=== PATIENT | female | born 1960 ===

== ENCOUNTER 2017-02-01 18:35 | Emergency (ER) | payer MEDICARE, MEDICAID ==
[2017-02-01 18:42] VITALS: BMI 24.1
[2017-02-01 19:12] VITALS: TEMP 98.7
[2017-02-01 19:12] LABS: ADD MANUAL DIFF? NO
[2017-02-01 19:14] LABS: BASO # 0.01 K/mm3 (0.0-2.0); BASO % 0.2 % (0.0-3.0); EOS # 0.1 (0.0-0.7); EOS % 1.6 % (1.5-5.0); GRAN # 3.89 (1.4-6.5); GRAN % 63.7 % (50.0-68.0); HEMATOCRIT 39.5 % (42.0-52.0); LYMPH # 1.7 (1.2-3.4); LYMPH % 28.3 % (22.0-35.0); MEAN CELL VOLUME 90.8 fL (80.0-105.0); MEAN CORPUSCULAR HEMOGLOBIN 30.1 pg (25.0-35.0); MEAN CORPUSCULAR HGB CONC 33.2 g/dl (31.0-37.0); MEAN PLATELET VOLUME 10.9 fl (7.0-11.0); MONO # 0.4 (0.1-0.6); MONO % 6.2 % (1.0-6.0); PLATELET COUNT 253 10^3/uL (120.0-450.0); RED CELL DISTRIBUTION WIDTH 12.8 % (11.5-14.5); WHITE BLOOD COUNT 6.1 10^3/ul (4.5-11.0)
[2017-02-01] MEDS ORDERED: levETIRAcetam 1,000 MG in Sodium Chloride 0.9% 100 ML IV ONE (19:24)
[2017-02-01] MEDS ORDERED: Oxycodone/Acetaminophen 5/325 mg Tab PO STA (19:24)
[2017-02-01 19:28] LABS: ALB/GLOB RATIO 1.2 (1.1-1.8); ALKALINE PHOSPHATASE 67 U/L (38-133); ALT/SGPT 16 U/L (7-56); AST/SGOT 36 U/L (15-59); BILIRUBIN,TOTAL 1.1 mg/dL (0.2-1.3); BLOOD UREA NITROGEN 10 mg/dL (7-21); CALCIUM 9.8 mg/dL (8.4-10.5); CARBON DIOXIDE 22 mmol/L (21-33); CHLORIDE 100 mmol/L (98-107); GFR AFRICAN-AMERICAN > 60; GLUCOSE,RANDOM 89 mg/dL (70-110); SODIUM 136 mmol/L (132-148); TOTAL PROTEIN 8.6 g/dL (5.8-8.3)
[2017-02-01] MEDS ORDERED: Morphine 4 mg/ml ISec IVP STA (19:56)
[2017-02-01 20:20] LABS: URINE APPEARANCE CLEAR (CLEAR); URINE BILIRUBIN NEGATIVE (NEGATIVE); URINE BLOOD SMALL (NEGATIVE); URINE COLOR YELLOW (YELLOW); URINE GLUCOSE (UA) NEGATIVE (NEGATIVE); URINE KETONE NEGATIVE (NEGATIVE); URINE LEUKOCYTE ESTERASE SMALL Leu/uL (NEGATIVE); URINE PROTEIN NEGATIVE mg/dL (<30 mg/dL); URINE UROBILINOGEN 0.2 E.U./dL (<1 E.U./dL)
[2017-02-01 20:26] LABS: URINE BACTERIA MOD (NEG); URINE EPITHELIAL CELLS 0 - 2 /hpf (0-5)
--- NOTE | 2017-02-01 20:41 | ED PDOC ---
Arrival/HPI - General Chief Complaint: Seizure Time Seen by Provider: 02/01/17 18:40 Historian: Patient - History of Present Illness Narrative History of Present Illness (Text): 02/01/17 21:12 56 year old female presents to the emergency department with seizure like activity prior to arrival. As per ALS, patient was having seizure like activity upon their arrival. Upon arrival to ED, patient had seizure like activity and was given Ativan IV push with resolution. Patient had no postictal state. Patient is a poor historian. She states she takes Kepra for seizure and missed yesterday's dose. Patient states she has two types of seizures, one of which is brought on by "increased stress." Patient is also complaining of chronic back pain. All the patient's doctors are at [facility] Time/Duration: Prior to Arrival Symptom Onset: Sudden Symptom Course: Improving Modifying Factors (Text): None Associated Symptoms (Text): None Past Medical History - Provider Review Nursing Documentation Reviewed: Yes - Cardiac Hx Hypertension: Yes - Neurological HX Cerebrovascular Accident: Yes (denies deficits) Hx Seizures: Yes - Endocrine/Metabolic Hx Diabetes Mellitus Type 2: Yes - Psychiatric Hx Substance Use: No - Surgical History Hx Section: Yes Family/Social History - Physician Review Nursing Documentation Reviewed: Yes Family/Social History: Unknown Family HX Smoking Status: Light Smoker < 10 Cigarettes Daily Hx Alcohol Use: No Hx Substance Use: No Allergies/Home Meds Allergies/Adverse Reactions: Allergies Penicillins Allergy (Verified 02/01/17 18:44) ANAPHYLAXIS Home Medications: Home Meds Medication Instructions Recorded Confirmed levETIRAcetam [Keppra] 1,000 mg PO BID 02/01/17 02/01/17 Review of Systems - Physician Review All systems were reviewed & negative as marked: Yes - Review of Systems Respiratory: absent: SOB Musculoskeletal: Back Pain (chronic) Neurological: Seizure Physical Exam Vital Signs Reviewed: Yes Vital Signs Temp Pulse Resp BP Pulse Ox 02/01/17 22:27 66 16 98 02/01/17 21:27 57 L 13 113/74 97 02/01/17 20:15 60 20 113/75 95 02/01/17 18:36 98.7 F 79 17 146/82 98 Temperature: Afebrile Blood Pressure: Normal Pulse: Regular Respiratory Rate: Normal Appearance: Positive for: Well-Appearing, Non-Toxic, Comfortable Pain Distress: None Mental Status: Positive for: other (Awake, alert) Finger Stick Blood Glucose: 88 - Systems Exam Head: Present: Atraumatic, Normocephalic Pupils: Present: PERRL Extroacular Muscles: Present: EOMI Conjunctiva: Present: Normal Mouth: Present: Moist Mucous Membranes, Other (No tongue biting) Neck: Present: Normal Range of Motion Respiratory/Chest: Present: Clear to Auscultation, Good Air Exchange. No: Respiratory Distress, Accessory Muscle Use Cardiovascular: Present: Regular Rate and Rhythm, Normal S1, S2. No: Murmurs Abdomen: Present: Normal Bowel Sounds. No: Tenderness, Distention, Peritoneal Signs Genitourinary/Pelvic Exam: Present: Other (No incontinence) Back: Present: Normal Inspection Upper Extremity: Present: Normal Inspection. No: Cyanosis, Edema Lower Extremity: Present: Normal Inspection. No: Edema Neurological: Present: GCS=15, CN II-XII Intact, Speech Normal Skin: Present: Warm, Dry, Normal Color. No: Rashes Psychiatric: Present: Alert, Oriented x 3, Normal Insight, Normal Concentration Medical Decision Making ED Course and Treatment: Impression: 56 year old female presents to the emergency department with seizure like activity prior to arrival. Differential Diagnosis included but are not limited to: Seizure Plan: -- EKG -- Ativan -- Labs -- Reassess and disposition Progress Notes: EKG shows NSR at [address] segment elevations, normal axis, normal intervals, interpreted by me. - Lab Interpretations Lab Results: 02/01/17 18:50 02/01/17 18:50 Lab Results 02/01/17 19:19: Urine Color Yellow, Urine Appearance Clear, Urine pH 6.0, Ur Specific [place] 1.025, Urine Protein Negative, Urine Glucose (UA) Negative, Urine Ketones Negative, Urine Blood Small H, Urine Nitrate Negative, Urine Bilirubin Negative, Urine Urobilinogen 0.2, Ur Leukocyte Esterase Small H, Urine RBC 2 - 5, Urine WBC 5 - 10, Ur Epithelial Cells 0 - 2, Urine Bacteria Mod , Urine HCG, Qual Negative, Urine Opiates Screen Positive H, Urine Methadone Screen Negative, Ur Barbiturates Screen Negative, Ur Phencyclidine Scrn Negative , Ur Amphetamines Screen Negative, U Benzodiazepines Scrn Positive H, U Oth Cocaine Metabols Negative, U Cannabinoids Screen Negative 02/01/17 18:50: WBC 6.1, RBC 4.35, Hgb 13.1 L, Hct 39.5 L, MCV 90.8, MCH 30.1, MCHC 33.2, RDW 12.8, Plt Count 253, MPV 10.9, Gran % 63.7, Lymph % (Auto) 28.3, [place] % (Auto) 6.2 H, Eos % (Auto) 1.6, Baso % (Auto) 0.2, Gran # 3.89, Lymph # 1.7, [place] # 0.4, Eos # 0.1, Baso # 0.01, Sodium 136, Potassium 4.0, Chloride 100 , Carbon Dioxide 22, Anion Gap 18, BUN 10, Creatinine 0.7, Est GFR ( Amer ) > 60, Est GFR (Non-Af Amer) > 60, Random Glucose 89, Calcium 9.8, Total Bilirubin 1.1, AST 36, ALT 16, Alkaline Phosphatase 67, Total Protein 8.6 H, Albumin 4.6, Globulin 4.0, Albumin/Globulin Ratio 1.2 - EKG Interpretation Interpreted by ED Physician: Yes Type: 12 lead EKG - Medication Orders Current Medication Orders: Discontinued Medications Hydromorphone HCl (Dilaudid) 1 mg IVP STAT STA Stop: 02/01/17 21:09 Last Admin: 02/01/17 21:25 Dose: 1 MG IVP Administration Document 02/01/17 21:25 [email or web address] (Rec: 02/01/17 21:25 [email or web address] [id number]) Charges for Administration # of IVP Administrations 1 Levetiracetam 1,000 mg/ Sodium (Chloride) 110 mls @ 440 mls/hr IV ONCE ONE Stop: 02/01/17 19:38 Last Admin: 02/01/17 19:54 Dose: 440 MLS/HR eMAR Start Stop Document 02/01/17 19:54 [email or web address] (Rec: 02/01/17 19:54 [email or web address] [id number]) Intravenous Solution Start Date 02/01/17 Start Time 19:54 End Date 02/01/17 Lorazepam (Ativan) 4 mg IVP STAT STA PRN Reason: Protocol Stop: 02/01/17 19:03 Last Admin: 02/01/17 19:07 Dose: 4 MG Behavioural Document 02/01/17 19:07 [email or web address] (Rec: 02/01/17 19:07 [email or web address] [id number]) Maintenance Maintenance Dose Yes Behavior Behavior for Medication: Anxiety IVP Administration Document 02/01/17 19:07 [email or web address] (Rec: 02/01/17 19:07 [email or web address] [id number]) Charges for Administration # of IVP Administrations 1 Morphine Sulfate (Morphine) 4 mg IVP STAT STA Stop: 02/01/17 19:57 Last Admin: 02/01/17 20:10 Dose: 4 MG MAR Pain Assessment Document 02/01/17 20:10 [email or web address] (Rec: 02/01/17 20:11 [facility] [id number]) Pain Reassessment Is this a pain reassessment? No Sleep Is patient sleeping during reassessment? No Presence of Pain Presence of Pain Yes Pain Scale Used Pain Scale Used Numeric Location Pain Location Body Site Back Description Description Constant Intensity of Pain at present 8 Pain Behavior Moaning Guarding Withdrawal from Touch Facial Grimacing Aggravating Factors Changing Position Alleviating Factors/Management Medication Techniques Alleviating Factors Medication IVP Administration Document 02/01/17 20:10 [email or web address] (Rec: 02/01/17 20:11 [email or web address] [id number]) Charges for Administration # of IVP Administrations 1 Oxycodone/Acetaminophen (Percocet 5/325 Mg Tab) 2 tab PO STAT STA Stop: 02/01/17 19:25 Last Admin: 02/01/17 19:41 Dose: - Scribe Statement The provider has reviewed the documentation as recorded by the Cora Sharpe Provider Scribe Attestation: All medical record entries made by the Cora were at my direction and personally dictated by me. I have reviewed the chart and agree that the record accurately reflects my personal performance of the history, physical exam, medical decision making, and the department course for this patient. I have also personally directed, reviewed, and agree with the discharge instructions and disposition. Disposition/Present on Arrival - Present on Arrival Any Indicators Present on Arrival: No History of DVT/PE: No History of Uncontrolled Diabetes: No Urinary Catheter: No History of Decub. Ulcer: No History Surgical Site Infection Following: None - Disposition Have Diagnosis and Disposition been Completed?: Yes Diagnosis: Seizure disorder, Chronic back pain Disposition: HOME/ ROUTINE Disposition Time: 21:15 Condition: GOOD Discharge Instructions (ExitCare): Epilepsy (ED), Chronic Back Pain (ED) Additional Instructions: Thank you for letting us take care of you today. Your provider was Dr. Ennis. You were treated for seizure disorder and chronic back pain. The emergency medical care you received today was directed at your acute symptoms. If you were prescribed any medication, please fill it and take as directed. It may take several days for your symptoms to resolve. Return to the Emergency Department if your symptoms worsen, do not improve, or if you have any other problems. Please contact your doctor or call one of the physicians/clinics you have been referred to that are listed on the Patient Visit Information form that is included in your discharge packet. Bring any paperwork you were given at discharge with you along with any medications you are taking to your follow up visit. Our treatment cannot replace ongoing medical care by a primary care provider (PCP) outside of the emergency department. Thank you for allowing the [facility] team to be part of your care today. Take your keppra twice a day as prescribed. Do NOT take it tonight. You received your dose here in the ED. Follow up with your neurologist tomorrow morning for re-evaluation. Referrals: [facility], [Non-Staff] - Follow up with primary
[2017-02-01] MEDS ORDERED: HYDROmorphone 1 mg/ml ISec IVP STA (21:08)
[2017-02-01 21:27] VITALS: BP 113/74
[2017-02-01 22:28] VITALS: PULSE 66; RESP 16; O2SAT 98
--- NOTE | 2017-02-02 09:57 | CARD ---
APPROVED REPORT EKG Measurement Heart [id number] <Conclusion> Normal sinus rhythm PRWP V 1 - 4
== END 2017-02-01 22:28 | disposition home or self-care (01) ==
LOC: EDSEX → ED 18:35
DX: G40.909 Epilepsy, unspecified, not intractable, without status epilepticus (principal); M54.9 Dorsalgia, unspecified; G89.29 Other chronic pain; I10 Essential (primary) hypertension
CPT/HCPCS: 80053; 81001; 84703; 85025; 87086; 93005; 96374; 96375; 99285; G0480; J1170; J1953; J2060; J2270

== ENCOUNTER 2017-05-18 08:53 | Emergency (ER) | payer MEDICARE, MEDICAID ==
[2017-05-18 09:03] VITALS: TEMP 98.8; BMI 22.1
--- NOTE | 2017-05-18 09:38 | ED PDOC ---
Arrival/HPI - General Chief Complaint: Abdominal Pain Time Seen by Provider: 05/18/17 09:31 - History of Present Illness Narrative History of Present Illness (Text): 05/18/17 09:33 56 y/o female, pmh including htn/seizure, penicillin allergy, c/o abdominal pain /nausea/vomiting/diarrhea x 2 days. Pt. stated that she had chicken sandwich with her friend, 6 hours later developed nausea/vomiting and diarrhea, seen at the [facility] yesterday which she stated that she had CT Head which show no acute findings, no recent traveling with no antibiotics for the past 6 weeks, admits tired, epigastric pain with cramp, no fever or chills, no numbness or tingling, no other medical or psychological complaints. Past Medical History - Provider Review Nursing Documentation Reviewed: Yes - Infectious Disease Hx of Infectious Diseases: None - Cardiac Hx Hypertension: Yes - Pulmonary Hx Respiratory Disorders: No - Neurological HX Cerebrovascular Accident: Yes (denies deficits) Hx Seizures: Yes - HEENT Hx HEENT Disorder: No - Renal Hx Renal Disorder: No - Endocrine/Metabolic Hx Diabetes Mellitus Type 2: Yes - Musculoskeletal/Rheumatological Hx Musculoskeletal Disorders: Yes Hx Back Pain: Yes - Gastrointestinal Hx Gastrointestinal Disorders: No - Genitourinary/Gynecological Hx Genitourinary Disorders: No - Psychiatric Hx Psychophysiologic Disorder: No Hx Substance Use: No - Surgical History Hx Section: Yes - Anesthesia Hx Anesthesia: Yes Hx Anesthesia Reactions: No Family/Social History - Physician Review Nursing Documentation Reviewed: Yes Family/Social History: Unknown Family HX Smoking Status: Former Smoker Hx Alcohol Use: No Hx Substance Use: No Allergies/Home Meds Allergies/Adverse Reactions: Allergies Penicillins Allergy (Intermediate, Verified 05/18/17 09:03) ANAPHYLAXIS Home Medications: Home Meds Medication Instructions Recorded Confirmed levETIRAcetam [Keppra] 1,000 mg PO BID 02/01/17 05/18/17 oxyCODONE [oxyCODONE Immediate 2 tab PO BID 05/18/17 05/18/17 Release Tab] Review of Systems - Review of Systems Constitutional: Fatigue. absent: Fevers Eyes: absent: Vision Changes ENT: absent: Hearing Changes Respiratory: absent: SOB, Cough, Sputum Cardiovascular: absent: Chest Pain Gastrointestinal: Abdominal Pain, Diarrhea, Nausea, Vomiting. absent: Constipation Musculoskeletal: absent: Arthralgias, Myalgias Skin: absent: Rash, Pruritis, Skin Lesions Neurological: absent: Headache, Dizziness, Focal Weakness Psychiatric: absent: Depression, Suicidal Ideation Physical Exam Vital Signs Reviewed: Yes Vital Signs Temp Pulse Resp BP Pulse Ox 05/18/17 15:07 67 18 167/89 H 100 05/18/17 14:22 69 18 169/92 H 100 05/18/17 13:00 73 18 174/104 H 100 05/18/17 11:42 76 15 172/104 H 100 05/18/17 11:00 95 H 18 172/104 H 100 05/18/17 09:45 70 17 178/110 H 99 05/18/17 09:02 98.8 F 120 H 22 155/105 H 100 Temperature: Afebrile Blood Pressure: Hypertensive Pulse: Tachycardic Respiratory Rate: Normal Appearance: Positive for: Well-Appearing, Non-Toxic, Comfortable Pain Distress: Moderate Mental Status: Positive for: Alert and Oriented X 3 - Systems Exam Head: Present: Atraumatic, Normocephalic Pupils: Present: PERRL Extroacular Muscles: Present: EOMI Conjunctiva: Present: Normal Mouth: Present: Moist Mucous Membranes Neck: Present: Normal Range of Motion Respiratory/Chest: Present: Clear to Auscultation, Good Air Exchange. No: Respiratory Distress, Accessory Muscle Use Cardiovascular: Present: Regular Rate and Rhythm, Normal S1, S2. No: Murmurs Abdomen: Present: Tenderness (+epigastric tenderness), Normal Bowel Sounds. No : Distention, Peritoneal Signs, Rebound, Guarding Back: Present: Normal Inspection. No: CVA Tenderness, Midline Tenderness Upper Extremity: Present: Normal Inspection. No: Cyanosis, Edema Lower Extremity: Present: Normal Inspection. No: Edema Neurological: Present: GCS=15, Speech Normal, Motor Func Grossly Intact, Gait Normal, Memory Normal Skin: Present: Warm, Dry, Normal Color. No: Rashes Psychiatric: Present: Alert, Oriented x 3, Normal Insight, Normal Concentration Medical Decision Making ED Course and Treatment: 05/18/17 09:38 -labs/ua/magnesium level -IVF/pepcid/reglan -CT abdomen and pelvis -Gall bladder sonogram -Observe and reassess 05/18/17 12:24 -CT abdomen and pelvis: no acute intraabdominal examination. -Gall bladder sonogram: unremarkable examination. 05/18/17 14:54 -Labs reviewed show potassium 3.1 and Magnesium mildly which I corrected both with the medication given. Pt. refused PO potassium in the ER which I will give her PO tablet as discharge. -Pt. stated that she needs morphine for her headache, her previous CT Head which was performed yesterday show no acute findings. -UA show no UTI -Pt. stated that her abdominal pain is gone. She will like morphine 4mg IV for her headache which she stated that after the morphine 4mg IV as she will like to go home. 05/18/17 15:18 -There is no other emergent immediate intervention or treatment indicated. Pt. has been obvserve in the ER for over 6 hours, vitally stable, will discharge the patient and outpatient GI follow up. -Pt. has zofran and pepcid precribed by the [facility] yesterday which she not fill her prescription yet. I will ask her to continue to fill the prescription. -Discharge home with potassium chloride, education on fill your prescriptions from the yesterday's ER, non dairy diet, BRAT diet, follow up with your own pmd and GI within 2 days, return to the ER for any new or worsening signs or symptoms. - Lab Interpretations Lab Results: 05/18/17 09:39 05/18/17 10:24 Lab Results 05/18/17 10:24: Sodium 134, Potassium 3.1 L, Chloride 97 L, Carbon Dioxide 26, Anion Gap 14, BUN 7, Creatinine 0.5, Est GFR ( Amer) > 60, Est GFR (Non- Af Amer) > 60, Random Glucose 114 H, Calcium 9.4, Magnesium 1.5 L, Total Bilirubin 1.2, AST 46 H, ALT 40, Alkaline Phosphatase 83, Total Protein 8.4 H, Albumin 4.6, Globulin 3.8, Albumin/Globulin Ratio 1.2, Lipase 41 05/18/17 10:11: Urine Color Straw, Urine Appearance Clear, Urine pH 8.0, Ur Specific [place] 1.025, Urine Protein 30 H, Urine Glucose (UA) Negative, Urine Ketones Trace H, Urine Blood Moderate H, Urine Nitrate Negative, Urine Bilirubin Negative, Urine Urobilinogen 0.2, Ur Leukocyte Esterase Negative, Urine RBC 5 - 10, Urine WBC 0 - 2, Ur Epithelial Cells 0 - 2, Urine Bacteria Trace 07/03/17 09:39: WBC 8.1 D, RBC 5.05, Hgb 15.9, Hct 45.6, MCV 90.3, MCH 31.5, MCHC 34.9, RDW 12.7, Plt Count 234, MPV 10.7, Gran % 77.1 H, Lymph % (Auto) 13.5 L, [place] % (Auto) 9.2 H, Eos % (Auto) 0.1 L, Baso % (Auto) 0.1, Gran # 6.27 , Lymph # 1.1 L, [place] # 0.8 H, Eos # 0.0, Baso # 0.01 Interpretation: Abnormal lab values (K+ 3.1, mg 1.5) - RAD Interpretation Radiology Orders: 05/18/17 10:24 GALL BLADDER [US] Stat 05/18/17 10:25 ABDOMEN & PELVIS [ABD & PELVIS IV CONTRAST ONLY] [CT] Stat CT abdomen and pelvis: no acute intraabdominal examination. Gall bladder sonogram: unremarkable examination. [employer] Maker: Radiologist - Medication Orders Current Medication Orders: Sodium Chloride (Sodium Chloride 0.9%) 1,000 mls @ 100 mls/hr IV .Q10H DEREK Last Admin: 05/18/17 09:44 Dose: 100 mls/hr Discontinued Medications Famotidine (Pepcid) 20 mg IVP STAT STA Stop: 05/18/17 09:33 Last Admin: 05/18/17 09:44 Dose: 20 mg Magnesium Sulfate/Dextrose (Magnesium Sulfate 1 Gm/100 Ml D5w) 1 gm in 100 mls @ 100 mls/hr IVPB ONCE ONE Stop: 05/18/17 11:55 Last Admin: 05/18/17 11:39 Dose: 100 mls/hr Sodium Chloride (Sodium Chloride 0.9%) 1,000 mls @ 999 mls/hr IV .Q1H1M STA Stop: 05/18/17 13:24 Last Admin: 05/18/17 12:46 Dose: 999 mls/hr Iohexol (Omnipaque 350 100 Ml) Confirm Administered Dose 350 mg .ROUTE .STK-MED ONE Stop: 05/18/17 10:58 Metoclopramide HCl (Reglan) 10 mg IVP STAT STA Stop: 05/18/17 09:33 Last Admin: 05/18/17 09:44 Dose: 10 mg Morphine Sulfate (Morphine) 4 mg IVP STAT STA Stop: 05/18/17 13:31 Last Admin: 05/18/17 13:47 Dose: 4 mg Re-Assess: PAZ Pain Assessment Document 05/18/17 14:47 OCS (Rec: 05/18/17 15:09 OCS [id number]) Pain Reassessment Is this a pain reassessment? Yes Sleep Is patient sleeping during reassessment? No Presence of Pain Presence of Pain Yes Pain Scale Used Pain Scale Used Numeric Location Pain Location Body Site Abdomen Morphine Sulfate (Morphine) 4 mg IVP STAT STA Stop: 05/18/17 14:54 Last Admin: 05/18/17 15:13 Dose: 4 mg Ondansetron HCl (Zofran Inj) 4 mg IVP STAT STA Stop: 05/18/17 13:31 Last Admin: 05/18/17 13:47 Dose: 4 mg Potassium Chloride (K-Dur 20 Meq Er Tab) 40 meq PO STAT STA Stop: 05/18/17 10:57 Last Admin: 05/18/17 15:05 Dose: Not Given Non-Admin Reason: Patient Refused Comments: as per patient, she gets seizure when her K is high - PA / TRADER / Resident Statement MD/DO has reviewed & agrees with the documentation as recorded. Disposition/Present on Arrival - Present on Arrival Any Indicators Present on Arrival: No History of DVT/PE: No History of Uncontrolled Diabetes: No Urinary Catheter: No History of Decub. Ulcer: No History Surgical Site Infection Following: None - Disposition Have Diagnosis and Disposition been Completed?: Yes Diagnosis: Abdominal pain, Nausea and vomiting, Hypokalemia Disposition: HOME/ ROUTINE Disposition Time: 14:55 Patient Plan: Discharge Patient Problems: Current Active Problems Problem Status Onset Abdominal pain Acute Nausea and vomiting Acute Condition: GOOD Additional Instructions: -Discharge home with potassium chloride, education on fill your prescriptions from the yesterday's ER, non dairy diet, BRAT diet, follow up with your own pmd and GI within 2 days, return to the ER for any new or worsening signs or symptoms. Prescriptions: Potassium Chloride 20 meq PO ONCE #1 tab Referrals: Shantelle Bethea, [Primary Care Provider] - Follow up with primary Reyes Haskins MD [Staff Provider] - Follow up with primary Raymond Barraza MD [Staff Provider] - Follow up with primary Forms: WORK NOTE
[2017-05-18] MEDS ORDERED: Sodium Chloride 0.9% 1,000 ML IV SCH (09:45)
[2017-05-18 09:48] LABS: BASO # 0.01 K/mm3 (0.0-2.0); BASO % 0.1 % (0.0-3.0); EOS % 0.1 % (1.5-5.0); GRAN # 6.27 (1.4-6.5); GRAN % 77.1 % (50.0-68.0); HEMOGLOBIN 15.9 gm/dL (12.0-16.0); LYMPH # 1.1 (1.2-3.4); LYMPH % 13.5 % (22.0-35.0); MEAN CELL VOLUME 90.3 fL (80.0-105.0); MEAN CORPUSCULAR HEMOGLOBIN 31.5 pg (25.0-35.0); MEAN CORPUSCULAR HGB CONC 34.9 g/dl (31.0-37.0); MEAN PLATELET VOLUME 10.7 fl (7.0-11.0); MONO # 0.8 (0.1-0.6); MONO % 9.2 % (1.0-6.0); PLATELET COUNT 234 10^3/uL (120.0-450.0); RBC 5.05 10^6/uL (3.5-6.1); RED CELL DISTRIBUTION WIDTH 12.7 % (11.5-14.5); WHITE BLOOD COUNT 8.1 10^3/ul (4.5-11.0)
[2017-05-18 10:16] LABS: URINE BILIRUBIN NEGATIVE (NEGATIVE); URINE BLOOD MODERATE (NEGATIVE); URINE GLUCOSE (UA) NEGATIVE (NEGATIVE); URINE LEUKOCYTE ESTERASE NEGATIVE Leu/uL (NEGATIVE); URINE NITRATE NEGATIVE (NEGATIVE); URINE PROTEIN 30 mg/dL (<30 mg/dL); URINE UROBILINOGEN 0.2 E.U./dL (<1 E.U./dL)
[2017-05-18 10:18] LABS: URINE APPEARANCE CLEAR (CLEAR); URINE COLOR STRAW (YELLOW)
[2017-05-18 10:19] LABS: URINE EPITHELIAL CELLS 0 - 2 /hpf (0-5)
[2017-05-18 10:20] LABS: URINE BACTERIA TRACE (NEG); URINE WBC 0 - 2 /hpf (0-6)
[2017-05-18 10:42] LABS: ALB/GLOB RATIO 1.2 (1.1-1.8); ALBUMIN 4.6 g/dL (3.0-4.8); ALT/SGPT 40 U/L (7-56); AST/SGOT 46 U/L (15-39); BLOOD UREA NITROGEN 7 mg/dL (7-21); CALCIUM 9.4 mg/dL (8.4-10.5); GFR AFRICAN-AMERICAN > 60; GFR NON-AFRICAN AMERICAN > 60; LIPASE 41 U/L (23-300); MAGNESIUM 1.5 mg/dL (1.7-2.2)
[2017-05-18] MEDS ORDERED: Potassium Chloride 20 mEq ER Tab PO STA (10:56)
[2017-05-18] MEDS ORDERED: Magnesium Sulfate 1 gm in D5W 1 GM/100 ML BAG IVPB ONE (10:56)
[2017-05-18] MEDS ORDERED: Iohexol 350 MG/100 ML VIAL ONE (10:57)
--- NOTE | 2017-05-18 12:14 | US ---
HISTORY: upper abdominal pain COMPARISON: None. TECHNIQUE: Sonographic evaluation of the right upper quadrant of the abdomen. FINDINGS: LIVER: Measures cm in length. Normal echogenicity of the liver parenchyma. No mass. No intrahepatic bile duct dilatation. GALLBLADDER: Unremarkable. No gallstones. COMMON BILE DUCT: Measures mm. No stones. No dilatation. PANCREAS: Unremarkable as visualized. No mass. No ductal dilatation. RIGHT KIDNEY: Measures cm in length. Normal echogenicity. No calculus, mass, or hydronephrosis. AORTA: No aneurysmal dilatation. IVC: Unremarkable. OTHER FINDINGS: None . IMPRESSION: Unremarkable exam
--- NOTE | 2017-05-18 12:20 | CT ---
PROCEDURE: CT Abdomen and Pelvis with contrast HISTORY: generalabdominal pain "perform CT ONLY AFTER SONO" COMPARISON: None. TECHNIQUE: Contrast dose: 100 cc of Omni 350 Radiation dose: Total exam DLP = 235 mGy-cm. This CT exam was performed using one or more of the following dose reduction techniques: Automated exposure control, adjustment of the mA and/or kV according to patient size, and/or use of iterative reconstruction technique. FINDINGS: LOWER THORAX: Unremarkable. LIVER: Unremarkable. No gross lesion or ductal dilatation. GALLBLADDER AND BILE DUCTS: There is dense sludge within the gallbladder. There is mild enhancement of the gallbladder wall. There were no stones demonstrated on ultrasound. PANCREAS: Unremarkable. No gross lesion or ductal dilatation. SPLEEN: Unremarkable. ADRENALS: Unremarkable. No mass. KIDNEYS AND URETERS: Unremarkable. No hydronephrosis. No solid mass. VASCULATURE: Unremarkable. No aortic aneurysm. BOWEL: Unremarkable. No obstruction. No gross mural thickening. Mild constipation APPENDIX: Normal appendix. PERITONEUM: Unremarkable. No free fluid. No free air. LYMPH NODES: Unremarkable. No enlarged lymph nodes. BLADDER: Unremarkable. REPRODUCTIVE: Unremarkable. BONES: No acute fracture. OTHER FINDINGS: None. IMPRESSION: Gallbladder sludge. No acute intra-abdominal findings
[2017-05-18] MEDS ORDERED: Sodium Chloride 0.9% 1,000 ML IV STA (12:24)
[2017-05-18 13:00] VITALS: RESP 18
[2017-05-18] MEDS ORDERED: Morphine 4 mg/ml ISec IVP STA ×2 (13:30→14:53)
[2017-05-18 15:07] VITALS: PULSE 67
[2017-05-18 15:49] VITALS: BP 182/85; O2SAT 98
== END 2017-05-18 15:47 | disposition home or self-care (01) ==
LOC: ED 08:53
DX: E87.6 Hypokalemia (principal); R11.2 Nausea with vomiting, unspecified; R10.9 Unspecified abdominal pain; I10 Essential (primary) hypertension; E11.9 Type 2 diabetes mellitus without complications; Z87.891 Personal history of nicotine dependence
CPT/HCPCS: 74177; 76705; 80053; 81001; 83690; 83735; 85025; 96374; 96375; 96376; 99285; J2270; J2405; J2765; J3475; J7040; Q9967